=== PATIENT | female | born 1995 | race Caucasian/White ===

== ENCOUNTER 2018-11-30 10:17 | Outpatient (CLI) | payer OTHER | END 2018-11-30 10:18 | disposition home or self-care (01) | LOC: CTENTCT 10:17 | PROVIDERS: ATTEND Otolaryngology Plastic Surgery within the Head & Neck | DX: J01.81 Other acute recurrent sinusitis (principal) | CPT/HCPCS: 70486 ==

== ENCOUNTER 2018-12-13 10:15 | Day surgery (SDC) | payer OTHER ==
[2018-12-12 12:27] VITALS: BMI 19.1
[2018-12-13] MEDS ORDERED: Oxymetazoline HCl 0.05% ( 15 ML ) ONE ×2 (10:29→11:40)
[2018-12-13] MEDS ORDERED: Fentanyl 250 MCG/5 ML VIAL ONE (11:39)
[2018-12-13] MEDS ORDERED: Midazolam HCl 2 mg/2 ml Vial ONE (11:39)
[2018-12-13] MEDS ORDERED: Lidocaine 1% w/Epinephrine 1:100K 20 ML VIAL ONE (11:40)
[2018-12-13 11:48] LABS: BHCG - Serum Negative (NEGATIVE); Pregs Control Background? CLEAR/WHITE (CLR/WHITE); Pregs Control Bar Appear? YES (CONTROL BAR)
[2018-12-13] MEDS ORDERED: Fentanyl 100 MCG/2 ML VIAL ONE ×2 (13:06→13:58)
--- NOTE | 2018-12-14 10:19 | OP ---
DATE OF PROCEDURE: 12/13/2018 PREOPERATIVE DIAGNOSES: 1. Chronic rhinosinusitis. 2. Left middle turbinate brianne bullosa. 3. Nasal obstruction. 4. Bilateral inferior turbinate hypertrophy. POSTOPERATIVE DIAGNOSES: 1. Chronic rhinosinusitis. 2. Left middle turbinate brianne bullosa. 3. Nasal obstruction. 4. Bilateral inferior turbinate hypertrophy. PROCEDURES PERFORMED: 1. Bilateral endoscopic sinus surgery, total ethmoidectomies. 2. Bilateral endoscopic sinus surgery, maxillary antrostomies. 3. Bilateral endoscopic sinus surgery, frontal sinusotomies. 4. Bilateral endoscopic sinus surgery, sphenoidotomies. 5. Bilateral inferior turbinate submucosal resection. 6. Endoscopic resection of left middle turbinate brianne bullosa. ESTIMATED BLOOD LOSS: 20 mL. COMPLICATIONS: None. ANESTHESIA: GETA. PROCEDURE IN DETAIL: BILATERAL ENDOSCOPIC SINUS SURGERY, TOTAL ETHMOIDECTOMY AND MAXILLARY ANTROSTOMY: Following this, 1% lidocaine with 1:100,000 epinephrine were injected into the middle turbinates and lateral nasal wall bilaterally. Following this, the 0-degree endoscope was used to visualize the middle turbinate and the middle turbinate was medially fractured using a Conrath elevator. Following this, the uncinate process was identified and was examined. The uncinate process was noted to be inflamed and laterally displaced bilaterally. Following this, a ball-ended probe was used to anteriorly fracture the uncinate process bilaterally. Following this, the 0-degree microdebrider and the up-biting Blakesley forceps were used to remove the uncinate process bilaterally. Following this, the natural maxillary sinus ostia was identified with the 0-degree endoscope and the ball-ended probe. The natural maxillary ostia were then widened using a 40-degree microdebrider and the straight Blakesley forceps bilaterally. Following this, the ethmoidal bulla was identified bilaterally. A 0-degree microdebrider was used to puncture the ethmoidal bulla on its medial and inferior aspect bilaterally. Following this, the 0-degree microdebrider and the up-biting Blakesley forceps were used to remove the ethmoidal bulla. Following this, the grand lamella was identified posterior to this area and was punctured using the 0-degree microdebrider bilaterally. Following this, the ethmoidal cells were opened from the posterior to the anterior using the 0-degree microdebrider, the 40-degree microdebrider and the up-biting Blakesley forceps bilaterally. Following this, the 45-degree endoscope and the 40-degree microdebrider blade were used to further remove the anterior ethmoidal cells to the level of the frontal sinus recess bilaterally. Following this, 0-degree endoscope was advanced in the middle meatus and the superior turbinate was identified as it attached to the posterior nasal wall. Staying just medial and inferior to this, the Valverde tip suction was used to create a sphenoid sinusotomy bilaterally. Following this, the 0-degree microdebrider was used to widen the sphenoid sinus ostia medially and inferiorly. Following this, 45-degree endoscope was then used to visualize the frontal sinus recess and frontal sinus ostia. The 40-degree microdebrider blade to widen the frontal sinus ostia bilaterally. Following this, a sickle knife was used to make a vertical incision in the anterior face of the left middle turbinate, and the 0-degree Blakesley and 0-degree microdebrider blades were used to remove the lateral wall of the left middle turbinate brianne bullosa. Following this, the inferior turbinates were identified and the submucosal microdebrider was used to submucosally puncture and resect the anterior and inferior portions of the inferior turbinates bilaterally. Following this, nasal cavity was irrigated. Mirapex was placed. Quijano splints were placed and secured. NasoPore packing was placed within the middle meatus bilaterally. The patient tolerated the procedure well. Job ID: [id number]
== END 2018-12-13 15:07 | disposition home or self-care (01) ==
LOC: SDC 10:15
PROVIDERS: ATTEND Otolaryngology Plastic Surgery within the Head & Neck
PROC: 09TL8ZZ Resection of Nasal Turbinate, Via Natural or Artificial Opening Endoscopic (ICD-10-PCS; principal; 2018-12-13)
PROC: 09TU8ZZ Resection of Right Ethmoid Sinus, Via Natural or Artificial Opening Endoscopic (ICD-10-PCS; principal; 2018-12-13)
PROC: 099R8ZZ Drainage of Left Maxillary Sinus, Via Natural or Artificial Opening Endoscopic (ICD-10-PCS; principal; 2018-12-13)
PROC: 09TV8ZZ Resection of Left Ethmoid Sinus, Via Natural or Artificial Opening Endoscopic (ICD-10-PCS; principal; 2018-12-13)
PROC: 099Q8ZZ Drainage of Right Maxillary Sinus, Via Natural or Artificial Opening Endoscopic (ICD-10-PCS; principal; 2018-12-13)
DX: J32.9 Chronic sinusitis, unspecified (principal); J34.3 Hypertrophy of nasal turbinates; J34.89 Other specified disorders of nose and nasal sinuses
CPT/HCPCS: 36415; 84703; 85014; J0131; J2001; J2250; J3010